=== PATIENT | male | born 1970 | race Caucasian/White ===

== ENCOUNTER 2023-04-17 01:34 | Inpatient (IN) | payer SELFPAY ==
[~2023-04-17] VITALS: Ht 182.9 cm; Wt 105.5 kg
[2023-04-17 02:40] LABS: BASOPHILS % 0.9 % (0.0-2.0); EOSINOPHILS % 1.7 % (0.0-5.0); HEMATOCRIT. 41.4 % (42.0-52.0); HEMOGLOBIN. 14.5 g/dL (14.0-18.0); LYMPHOCYTES % 22.8 % (20.0-50.0); MEAN CORPUSCULAR HEMOGLOBIN 29.3 pg (28.0-32.0); MEAN CORPUSCULAR VOLUME 83.6 fL (80.0-94.0); MEAN PLATELET VOLUME 9.1 fl (7.4-10.4); MONOCYTES % 8.1 % (2.0-8.0); NEUTROPHILS % 66.5 % (40.0-76.0); PLATELET 128 x1000/uL (130-400); RED BLOOD CELL COUNT 4.96 mill/uL (4.7-6.1); RED CELL DISTRIBUTION WIDTH 15.6 % (11.6-14.6)
[2023-04-17] MEDS ORDERED: ONDANSETRON HCL 4MG/2ML INJ IV STA (02:45)
[2023-04-17] MEDS ORDERED: MORPHINE SULFATE 4 MG/ML CPJ (NOT FOR IM USE) IV STA (02:45)
[2023-04-17] MEDS ORDERED: ASPIRIN 81MG TABLET PO ONE (02:45)
[2023-04-17 02:53] LABS: CHLORIDE 101 mEq/L (98-107)
[2023-04-17 02:58] LABS: PARTIAL THROMBOPLASTIN TIME 27.9 sec (23.4-31.0); PROTHROMBIN TIME 10.6 sec (9.6-11.0)
[2023-04-17 10:28] VITALS: BP 132/79; PULSE 83; RESP 13; TEMP 97.7
[2023-04-17 12:00] VITALS: BP 135/86; PULSE 84; RESP 18; TEMP 97.5
[2023-04-17] MEDS ORDERED: AMLODIPINE 5MG TABLET PO NR (13:15)
[2023-04-17] MEDS ORDERED: ONDANSETRON HCL 4MG/2ML INJ IV PRN (13:45)
[2023-04-17] MEDS ORDERED: HYDROCODONE/ACETAMINOPHEN 5/325MG TABLET PO PRN (13:45)
[2023-04-17] MEDS ORDERED: NALOXONE HCL 0.4MG/ML VIAL IV PRN (13:45)
[2023-04-17] MEDS ORDERED: IPRATROPIUM/ALBUTEROL 0.5-3(2.5)MG/3ML NEB HHN PRN (13:45)
[2023-04-17] MEDS ORDERED: CLONIDINE 0.1MG TABLET PO PRN (13:45)
[2023-04-17] MEDS ORDERED: ATORVASTATIN CALCIUM 40MG TABLET PO NR (14:00)
[2023-04-17] MEDS ORDERED: ATORVASTATIN CALCIUM 40MG TABLET PO SCH (14:00)
[2023-04-17] MEDS ORDERED: CLOPIDOGREL 75MG TABLET PO NR (14:00)
[2023-04-17] MEDS: ENOXAPARIN 40MG/0.4ML SYR SUBCUT SCH (14:40)
[2023-04-17 16:00] VITALS: BP 132/89; PULSE 94; RESP 19; TEMP 97.8
[2023-04-17] MEDS ORDERED: DEXTROSE 50% WATER 50ML SYRINGE IV PRN (19:30)
[2023-04-17 20:00] VITALS: BP 122/82; PULSE 98; RESP 18; TEMP 97.9
[2023-04-17] MEDS ORDERED: CLOP75TA33 PO (20:25)
[2023-04-17] MEDS ORDERED: METF-414 MT (20:25)
[2023-04-17] MEDS ORDERED: GLIP2.5T3 MT (20:25)
[2023-04-17] MEDS ORDERED: ATOR-2 PO (20:25)
[2023-04-17] MEDS ORDERED: LISI10TA26 PO (20:25)
[2023-04-17] MEDS: BLOOD SUGAR DIAGNOSTIC STRIP TEST SCH (21:00)
[2023-04-17 21:41] LABS: CHLORIDE 100 mEq/L (98-107)
[2023-04-17] MEDS: METOPROLOL TARTRATE 25MG TABLET PO SCH (22:03)
[2023-04-17] MEDS: INSULIN LISPRO 100 UNITS/ML SUBCUT SCH (22:09)
[2023-04-18] VITALS: BP 128/76; PULSE 82; RESP 11; TEMP 97.6
[2023-04-18 04:00] VITALS: BP 135/63; PULSE 86; RESP 20; TEMP 97.4
[2023-04-18] MEDS: BLOOD SUGAR DIAGNOSTIC STRIP TEST SCH ×4 (06:50→21:00)
[2023-04-18 07:15] LABS: CHLORIDE 102 mEq/L (98-107)
[2023-04-18 07:20] LABS: BASOPHILS % 0.4 % (0.0-2.0); HEMATOCRIT. 41.4 % (42.0-52.0); HEMOGLOBIN. 14.4 g/dL (14.0-18.0); LYMPHOCYTES % 23.2 % (20.0-50.0); MEAN CORPUSCULAR HEMOGLOBIN 29.1 pg (28.0-32.0); MEAN CORPUSCULAR VOLUME 83.5 fL (80.0-94.0); MEAN PLATELET VOLUME 9.2 fl (7.4-10.4); MONOCYTES % 10.2 % (2.0-8.0); NEUTROPHILS % 64.2 % (40.0-76.0); PLATELET 118 x1000/uL (130-400); RED BLOOD CELL COUNT 4.95 mill/uL (4.7-6.1); RED CELL DISTRIBUTION WIDTH 15.7 % (11.6-14.6)
[2023-04-18 07:33] LABS: T4 FREE 0.92 ng/dL (0.76-1.46)
[2023-04-18 08:00] VITALS: BP 130/72; PULSE 77; RESP 18; TEMP 97.9
[2023-04-18] MEDS: ASPIRIN 81MG EC TABLET PO SCH (09:06)
[2023-04-18] MEDS: ATORVASTATIN CALCIUM 40MG TABLET PO SCH (09:06)
[2023-04-18] MEDS: AMLODIPINE 5MG TABLET PO SCH (09:07)
[2023-04-18] MEDS: CLOPIDOGREL 75MG TABLET PO SCH (09:07)
[2023-04-18] MEDS: METOPROLOL TARTRATE 25MG TABLET PO SCH ×2 (09:07→21:16)
[2023-04-18] MEDS: INSULIN LISPRO 100 UNITS/ML SUBCUT SCH ×4 (09:15→21:00)
[2023-04-18] MEDS: METFORMIN HCL 500MG TABLET PO SCH ×2 (10:37→18:04)
[2023-04-18 12:00] VITALS: BP 130/82; PULSE 91; RESP 18; TEMP 97.7
[2023-04-18] MEDS: ENOXAPARIN 40MG/0.4ML SYR SUBCUT SCH (15:11)
[2023-04-18 16:00] VITALS: BP 132/85; PULSE 97; RESP 18; TEMP 97.8
[2023-04-18 20:00] VITALS: BP 132/71; PULSE 94; RESP 17; TEMP 97.8
[2023-04-19] VITALS: BP 131/65; PULSE 78; RESP 14; TEMP 97.5
[2023-04-19 04:00] VITALS: BP 94/52; PULSE 80; RESP 18
[2023-04-19 06:24] LABS: BASOPHILS % 0.5 % (0.0-2.0); EOSINOPHILS % 1.9 % (0.0-5.0); HEMATOCRIT. 42.5 % (42.0-52.0); HEMOGLOBIN. 14.7 g/dL (14.0-18.0); MEAN CORPUSCULAR VOLUME 84.2 fL (80.0-94.0); MEAN PLATELET VOLUME 9.3 fl (7.4-10.4); MONOCYTES % 8.7 % (2.0-8.0); NEUTROPHILS % 66.9 % (40.0-76.0); PLATELET 126 x1000/uL (130-400); RED BLOOD CELL COUNT 5.06 mill/uL (4.7-6.1); RED CELL DISTRIBUTION WIDTH 15.5 % (11.6-14.6)
[2023-04-19] MEDS: BLOOD SUGAR DIAGNOSTIC STRIP TEST SCH ×4 (06:42→20:36)
[2023-04-19] MEDS: METOPROLOL TARTRATE 25MG TABLET PO SCH ×2 (07:09→20:36)
[2023-04-19 08:00] VITALS: BP 133/84; PULSE 78; RESP 14; TEMP 98.1
[2023-04-19] MEDS: AMLODIPINE 5MG TABLET PO SCH (08:11)
[2023-04-19] MEDS: METFORMIN HCL 500MG TABLET PO SCH ×2 (08:11→17:36)
[2023-04-19] MEDS: ASPIRIN 81MG EC TABLET PO SCH (08:11)
[2023-04-19] MEDS: CLOPIDOGREL 75MG TABLET PO SCH (08:11)
[2023-04-19] MEDS: ATORVASTATIN CALCIUM 40MG TABLET PO SCH (08:11)
[2023-04-19] MEDS: INSULIN LISPRO 100 UNITS/ML SUBCUT SCH ×4 (08:14→20:37)
[2023-04-19 08:48] LABS: CHLORIDE 104 mEq/L (98-107)
[2023-04-19] MEDS ORDERED: METOPROLOL TARTRATE 5MG/5ML VIAL IV NR (11:00)
[2023-04-19] MEDS ORDERED: METOPROLOL TARTRATE 5MG/5ML VIAL IV PRN (11:00)
[2023-04-19 12:03] VITALS: BP 123/88; PULSE 78; RESP 15; TEMP 98.4
[2023-04-19] MEDS: ENOXAPARIN 40MG/0.4ML SYR SUBCUT SCH (14:57)
[2023-04-19 16:00] VITALS: BP 114/74; PULSE 93; RESP 18; TEMP 97.8
[2023-04-19 20:00] VITALS: BP 130/78; PULSE 86; RESP 20; TEMP 98.2
[2023-04-20] VITALS (7 sets, daily range): BP systolic 99–143; BP diastolic 59–94; PULSE 78–90; RESP 14–20; TEMP 97.6–98.5
[2023-04-20] MEDS: BLOOD SUGAR DIAGNOSTIC STRIP TEST SCH ×4 (06:52→21:32)
[2023-04-20] MEDS: INSULIN LISPRO 100 UNITS/ML SUBCUT SCH ×4 (07:20→21:00)
[2023-04-20] MEDS: METFORMIN HCL 500MG TABLET PO SCH ×2 (07:20→17:31)
[2023-04-20] MEDS: CLOPIDOGREL 75MG TABLET PO SCH (08:11)
[2023-04-20] MEDS: ASPIRIN 81MG EC TABLET PO SCH (08:11)
[2023-04-20] MEDS: ATORVASTATIN CALCIUM 40MG TABLET PO SCH (08:11)
[2023-04-20] MEDS: AMLODIPINE 5MG TABLET PO SCH (08:12)
[2023-04-20] MEDS: METOPROLOL TARTRATE 25MG TABLET PO SCH ×2 (08:12→21:32)
[2023-04-20] MEDS ORDERED: SODIUM CHLORIDE 0.45% 1,000 ML IV SCH (12:00)
[2023-04-20] MEDS ORDERED: ENOXAPARIN 80MG/0.8ML SYR SUBCUT SCH (16:00)
[2023-04-20 17:32] LABS: *AMPHETAMINES SCREEN URINE NEGATIVE (NEGATIVE); *BARBITURATES SCREEN URINE NEGATIVE (NEGATIVE); *BENZODIAZEPINES SCREEN URINE NEGATIVE (NEGATIVE); *COCAINE SCREEN URINE NEGATIVE (NEGATIVE); CANNABINOID URINE SCREEN NEGATIVE (NEGATIVE); METHADONE URINE SCREEN NEGATIVE (NEGATIVE); OPIATES URINE SCREEN NEGATIVE (NEGATIVE); PHENCYCLIDINE URINE SCREEN NEGATIVE (NEGATIVE)
[2023-04-21] VITALS (18 sets, daily range): BP systolic 108–139; BP diastolic 47–87; PULSE 76–96; RESP 13–24; TEMP 97.9–98.1; O2SAT 99
[2023-04-21] MEDS ORDERED: SODIUM CHLORIDE 0.45% 1,000 ML IV SCH (06:00)
[2023-04-21 06:19] LABS: CHLORIDE 103 mEq/L (98-107)
[2023-04-21 06:24] LABS: BASOPHILS % 0.9 % (0.0-2.0); EOSINOPHILS % 2.2 % (0.0-5.0); HEMATOCRIT. 43.3 % (42.0-52.0); HEMOGLOBIN. 15.3 g/dL (14.0-18.0); LYMPHOCYTES % 23.5 % (20.0-50.0); MEAN CORPUSCULAR HEMOGLOBIN 29.4 pg (28.0-32.0); MEAN CORPUSCULAR VOLUME 83.3 fL (80.0-94.0); MEAN PLATELET VOLUME 8.8 fl (7.4-10.4); NEUTROPHILS % 63.4 % (40.0-76.0); PLATELET 125 x1000/uL (130-400); RED CELL DISTRIBUTION WIDTH 15.5 % (11.6-14.6)
[2023-04-21] MEDS: BLOOD SUGAR DIAGNOSTIC STRIP TEST SCH ×3 (06:40→16:50)
[2023-04-21] MEDS: INSULIN LISPRO 100 UNITS/ML SUBCUT SCH ×3 (07:20→17:20)
[2023-04-21] MEDS: METFORMIN HCL 500MG TABLET PO SCH ×2 (07:20→17:30)
[2023-04-21] MEDS: CLOPIDOGREL 75MG TABLET PO SCH (07:52)
[2023-04-21] MEDS: ASPIRIN 81MG EC TABLET PO SCH (07:52)
[2023-04-21] MEDS: AMLODIPINE 5MG TABLET PO SCH (07:53)
[2023-04-21] MEDS: METOPROLOL TARTRATE 25MG TABLET PO SCH (07:55)
[2023-04-21] MEDS ORDERED: HEPARIN 1000 UNITS/ML 10ML ONE (09:20)
[2023-04-21] MEDS ORDERED: FENTANYL CITRATE/PF 50MCG/ML 2ML VIAL ONE (09:21)
[2023-04-21] MEDS ORDERED: LIDOCAINE HCL 1% 10 MG/ML 10ML VIAL ONE (09:21)
[2023-04-21] MEDS ORDERED: MIDAZOLAM HCL 2 MG/2 ML VIAL ONE (09:21)
[2023-04-21] MEDS ORDERED: IODIXANOL 320MG/ML 100 ML BOTTLE IV ONE (09:23)
[2023-04-21] MEDS ORDERED: ACETAMINOPHEN 325MG TABLET PO PRN (10:30)
[2023-04-21] MEDS ORDERED: ATROPINE SULFATE 1MG/10ML SYR IV PRN (10:30)
[2023-04-21] MEDS ORDERED: ONDANSETRON HCL 4MG/2ML INJ IV PRN (10:30)
[2023-04-21] MEDS: ATORVASTATIN CALCIUM 40MG TABLET PO SCH (11:45)
== END 2023-04-21 18:18 | disposition home or self-care (01) | DRG 192 ==
LOC: ER 01:49 → 3WST 09:48
PROVIDERS: ADMIT Internal Medicine; ATTEND Internal Medicine
PROC: 4A023N7 Measurement of Cardiac Sampling and Pressure, Left Heart, Percutaneous Approach (ICD-10-PCS; principal; 2023-04-21)
PROC: B2111ZZ Fluoroscopy of Multiple Coronary Arteries using Low Osmolar Contrast (ICD-10-PCS; 2023-04-21)
PROC: B2151ZZ Fluoroscopy of Left Heart using Low Osmolar Contrast (ICD-10-PCS; 2023-04-21)
DX: R07.89 Other chest pain (principal); E11.9 Type 2 diabetes mellitus without complications; I25.10 Atherosclerotic heart disease of native coronary artery without angina pectoris; F17.210 Nicotine dependence, cigarettes, uncomplicated; I10 Essential (primary) hypertension; G47.33 Obstructive sleep apnea (adult) (pediatric); E78.5 Hyperlipidemia, unspecified; I45.10 Unspecified right bundle-branch block; Z79.84 Long term (current) use of oral hypoglycemic drugs; Z95.5 Presence of coronary angioplasty implant and graft; Z79.82 Long term (current) use of aspirin; Z79.02 Long term (current) use of antithrombotics/antiplatelets; Z79.899 Other long term (current) drug therapy
CPT/HCPCS: 36415; 71045; 75571; 80048; 80053; 80305; 82962; 83036; 83880; 84439; 84443; 84484; 85025; 85379; 87426; 93005; 93306; 99285; J1644; J1650; J1815; J2250; J2270; J2405; J3010; J3490; Q9967